=== PATIENT | male | born 1990 | race Caucasian/White ===

== ENCOUNTER 2024-07-05 14:30 | Inpatient (IN) | payer MEDICAID, SELFPAY ==
--- NOTE | 2024-07-05 14:42 | W.ED.PSYCHS ---
HPI - Psych General: Chief Complaint: Psychiatric Symptoms Stated Complaint: SI Time Seen by Provider: 07/05/24 14:34 Source: patient and EMS Mode of arrival: EMS Limitations: no limitations History of Present Illness: 33-year-old male states been having increasing depression over the last week and been having suicidal thoughts today. He states that he is scared he is going to harm himself and wants to get help. He is not on any meds denies any worse improving factors. Associated symptoms: Reports depression and suicidal ideation Related Data Home Medications ?Medication ?Instructions ?Recorded ?Confirmed No Known Home Medications 07/05/24 07/05/24 Allergies Allergy/AdvReac Type Severity Reaction Status Date / Time Iodinated Contrast Media Allergy Unknown Unknown Verified 07/05/24 15:00 Review of Systems Const: Denies: fever(s), chills, body aches or change in appetite ENMT: Denies: throat pain or dental pain Card: Denies: chest pain Resp: Denies: dyspnea GI: Denies: abdominal pain, nausea, vomiting or diarrhea Musc: Denies: neck pain or back pain Skin/Breast: Denies: rash Neuro: Denies: headache(s) Psych: Reports: depression and suicidal ideation Physical Exam Const: COMMON NORMALS: no acute distress, patient oriented x3 and healthy appearing HENMT: COMMON NORMALS: normocephalic and atraumatic HEAD & SCALP: normocephalic and atraumatic Eye: COMMON NORMALS: conjunctivae normal CONJUNCTIVA: Yes conjunctivae normal Neck/C-Spine: COMMON NORMALS: full ROM Chest: COMMONS NORMALS: normal inspection of the chest Resp: COMMON NORMALS: normal respiratory effort Cardio: COMMON NORMALS: regular rate RATE: regular rate Extremity: COMMON NORMALS: normal to inspection and full ROM Neuro: COMMON NORMALS: patient oriented x3, moves all extremities and no focal motor deficits Psych: COMMON NORMALS: mental status grossly normal, Normal thought process present and cooperative MOOD & AFFECT: Yes depressed mood THOUGHT PROCESS: Normal thought process present THOUGHT CONTENT: Yes Suicidality present Skin: COMMON NORMALS: no rashes or lesions noted and no wounds GENERAL SKIN EXAM: no rashes or lesions noted Course Vital Signs: Vital signs: Vital Signs Temperature 97.8 F 07/05/24 14:44 Pulse Rate 82 07/05/24 14:44 Respiratory Rate 16 07/05/24 14:44 Blood Pressure 120/78 07/05/24 14:44 Pulse Oximetry 97 07/05/24 14:44 Oxygen Delivery Me thod Room Air 07/05/24 14:44 MDM - Psych Medical Decision Making Patient presents here with suicidal ideations he is placed on a 96-hour hold I spoke to psychiatrist will admit at this time. He has been stable while here. Medical Records I reviewed the patient's medical records. Lab Data I reviewed the patient's lab results. 07/05/24 14:14 07/05/24 14:14 Laboratory Results WBC 7.30 10^3/uL (3.29-11.43) 07/05/24 14:14 RBC 4.55 10^6/uL (3.85-5.65) 07/05/24 14:14 Hgb 13.80 g/dL (11.27-16.99) 07/05/24 14:14 Hct 43.5 % (37-53) 07/05/24 14:14 MCV 95.6 fl (82-101) 07/05/24 14:14 MCH 30.3 pg (27-33) 07/05/24 14:14 MCHC 31.7 g/dL (30-55) 07/05/24 14:14 RDW 12.5 % (12.1-15.1) 07/05/24 14:14 Plt Count 411 10^3/cmm (157-399) H 07/05/24 14:14 MPV 9.7 fL (7.4-10.4) 07/05/24 14:14 Neut % (Auto) 58.4 % 07/05/24 14:14 Lymph % (Auto) 30.0 % 07/05/24 14:14 [place] % (Auto) 7.0 % 07/05/24 14:14 Eos % (Auto) 2.9 % 07/05/24 14:14 Baso % (Auto) 1.6 % 07/05/24 14:14 Neut # (Auto) 4.26 10^3/uL (1.8-7.7) 07/05/24 14:14 Lymph # (Auto) 2.2 10^3/uL (0.8-4.8) 07/05/24 14:14 [place] # (Auto) 0.5 10^3/uL (0.2-0.9) 07/05/24 14:14 Eos # (Auto) 0.2 10^3/uL (0.0-0.8) 07/05/24 14:14 Baso # (Auto) 0.1 10^3/uL (0.0-0.1) 07/05/24 14:14 Nucleated RBC % (auto) 0 % 07/05/24 14:14 Nucleated RBCs # 0.0 /100WBC 07/05/24 14:14 Sodium 139 mmol/L (136-145) 07/05/24 14:14 Potassium 3.7 mmol/L (3.5-5.1) 07/05/24 14:14 Chloride 103 mmol/L (98-107) 07/05/24 14:14 Carbon Dioxide 26 mmol/L (22-29) 07/05/24 14:14 Anion Gap 13.7 (5-19) 07/05/24 14:14 BUN 12 mg/dL (6-20) 07/05/24 14:14 Creatinine 0.8 mg/dL (0.7-1.2) 07/05/24 14:14 GFR Calculation 110.0 mL/min (90-130) 07/05/24 14:14 Glucose 81 mg/dL (65-115) 07/05/24 14:14 Calculated Osmolality 287 mOsm/kg (285-295) 07/05/24 14:14 Calcium 8.8 mg/dL (8.5-10.5) 07/05/24 14:14 Total Bilirubin 0.3 mg/dL (0.15-1.2) 07/05/24 14:14 AST 16 U/L (0-40) 07/05/24 14:14 ALT 20 U/L (0-41) 07/05/24 14:14 Alkaline Phosphatase 59 U/L (40-130) 07/05/24 14:14 Total Protein 6.8 g/dL (6.6-8.7) 07/05/24 14:14 Albumin 4.2 g/dL (3.5-5.2) 07/05/24 14:14 Globulin 2.6 g/dL (1.3-4.6) 07/05/24 14:14 Salicylates < 0.3 mg/dL (3-10) L 07/05/24 14:14 Acetaminophen < 5.0 ug/mL (10-30) L 07/05/24 14:14 Ethyl Alcohol 16 mg/dL (0-10) H 07/05/24 14:14 No radiology studies performed this visit Discharge Plan Discharge Patient Disposition: Admitted As Inpatient Admit Provider: Marlo Melgar Clinical Impression: Suicidal ideation Condition: Stable Coding Level of Care Code ED [employer] Technician for Wendy Merrill
[2024-07-05 14:44] VITALS: BP 120/78; PULSE 82; RESP 16; TEMP 36.6; O2SAT 97
[2024-07-05 14:50] LABS: Basophils # 0.1 10^3/uL (0.0-0.1); Basophils % 1.6 %; Eosinophils # 0.2 10^3/uL (0.0-0.8); Eosinophils % 2.9 %; Hematocrit 43.5 % (37-53); Lymphocytes # 2.2 10^3/uL (0.8-4.8); Mean Corpuscular HGB Conc 31.7 g/dL (30-55); Mean Corpuscular Hemoglobin 30.3 pg (27-33); Mean Corpuscular Volume 95.6 fl (82-101); Mean Platelet Volume 9.7 fL (7.4-10.4); Monocytes # 0.5 10^3/uL (0.2-0.9); Neutrophils # 4.26 10^3/uL (1.8-7.7); Neutrophils % 58.4 %; Nucleated Red Blood Cells % 0 %; Platelet Count 411 10^3/cmm (157-399); Red Blood Count 4.55 10^6/uL (3.85-5.65); Red Cell Distribution Width 12.5 % (12.1-15.1)
--- NOTE | 2024-07-05 14:51 | PC.NURSE ---
96 hr rights reviewed with patient @[id number] with assistance of [facility] risk officer Tera Lemus All education reviewed with patient. No verbalized questions or concerns at this time for HS. Patient copy left with patient @bedside. Fisher and soda provided. No further needs.
[2024-07-05 15:06] LABS: Alanine Aminotransferase 20 U/L (0-41); Albumin Level 4.2 g/dL (3.5-5.2); Alcohol Level 16 mg/dL (0-10); Alkaline Phosphatase 59 U/L (40-130); Anion Gap 13.7 (5-19); Aspartate Amino Transferase 16 U/L (0-40); Blood Urea Nitrogen 12 mg/dL (6-20); Calcium 8.8 mg/dL (8.5-10.5); Carbon Dioxide 26 mmol/L (22-29); Chloride 103 mmol/L (98-107); Globulin 2.6 g/dL (1.3-4.6); Glucose 81 mg/dL (65-115); Osmolality Calculated 287 mOsm/kg (285-295); Potassium 3.7 mmol/L (3.5-5.1); Sodium 139 mmol/L (136-145); Total Bilirubin 0.3 mg/dL (0.15-1.2); Total Protein 6.8 g/dL (6.6-8.7)
[2024-07-05 15:07] LABS: Acetaminophen < 5.0 ug/mL (10-30); Salicylate < 0.3 mg/dL (3-10)
[2024-07-05 15:30] VITALS: BP 126/69; PULSE 81; O2SAT 100
[2024-07-05 15:45] VITALS: BP 126/69; PULSE 81; O2SAT 100
[2024-07-05 15:47] VITALS: BP 126/76; PULSE 73; RESP 18; TEMP 36.3; O2SAT 100
[2024-07-05 16:13] LABS: Amphetamines Screen Urine Positive (Negative); Barbiturates Screen Urine Negative (Negative); Benzodiazepines Screen Urine Negative (Negative); Cocaine Screen Urine Negative (Negative); Opiate Screen Urine Negative (Negative); PCP Screen Urine Negative (Negative); THC Screen Urine Positive (Negative)
--- NOTE | 2024-07-05 17:00 | PC.NURSE ---
Admission assessment Patient came into the ED for evaluation for increase in suicidal ideation. Patient endorses increase in life stressors. Patient lives in [place], [place] without a shower. Patient said that he uses baby wipes to clean himself. Patient does have electricity. Patient says that he has a truck, but he doesn't have a way to get to it, and that lack of transportation is getting him down, as well. 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 Patient has been on psych medications in the past, but stated that none of these have worked. Patient endorses regular methamphetamine use. Patient says that he last used it 07/04/24 and that he uses it multiple times per week. Pt also drinks 6 beers per day. Patient is currently feeling suicidal with no specific plan, says that he has flashes. Patient verbally contracted for safety.
[2024-07-05 20:00] VITALS: BP 120/65; PULSE 69; RESP 18; TEMP 36.4; O2SAT 100
[2024-07-06] VITALS: RESP 16
--- NOTE | 2024-07-06 00:03 | PC.NURSE ---
pt refused nurse notified resp at 16
[2024-07-06 04:00] VITALS: BP 114/70; PULSE 60; RESP 16; O2SAT 98
[2024-07-06] MEDS: folic acid 1 mg Tablet PO (07:53)
[2024-07-06] MEDS: multivitamin therapeutic Tablet 1 TAB PO (07:54)
[2024-07-06] MEDS: thiamine 100 mg Tablet PO (07:54)
[2024-07-06 08:00] VITALS: BP 115/63; PULSE 56; RESP 18; TEMP 36.6; O2SAT 100
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
[2024-07-06 12:00] VITALS: BP 124/72; PULSE 82; RESP 18; TEMP 36.6; O2SAT 99
[2024-07-06 16:00] VITALS: BP 117/68; PULSE 71; RESP 18; TEMP 37.1; O2SAT 99
[2024-07-06] MEDS: nicotine 2 mg Gum BUCCAL (16:55)
[2024-07-06] MEDS: trazodone 50 mg Tablet PO (19:12)
[2024-07-06 20:00] VITALS: BP 110/66; PULSE 76; RESP 18; TEMP 36.3; O2SAT 98
[2024-07-07] VITALS: BP 108/62; PULSE 88; RESP 16; O2SAT 97
[2024-07-07 04:00] VITALS: BP 107/63; PULSE 68; RESP 16; O2SAT 98
[2024-07-07 08:00] VITALS: BP 107/60; PULSE 66; RESP 16; TEMP 36.5; O2SAT 97
[2024-07-07] MEDS: thiamine 100 mg Tablet PO (09:25)
[2024-07-07] MEDS: multivitamin therapeutic Tablet 1 TAB PO (09:25)
[2024-07-07] MEDS: folic acid 1 mg Tablet PO (09:25)
[2024-07-07 12:00] VITALS: BP 103/52; PULSE 119; RESP 18; TEMP 36.3; O2SAT 100
--- NOTE | 2024-07-07 13:23 | P.NPUPN_ITS ---
Subjective NPU 2 Subjective: 33-year-old male with a history of metha mphetamine induced psychotic disorder and suicidal ideation along with depression. He had continued to report depression. He did continue to isolate himself on the milieu. He had continued to endorse some paranoia with some beliefs that his family had intermittent knowledge of information with the suggestion that his thoughts were somehow being broadcasted to them. He had minimized any depressed mood today but continued to report feeling suspicious about his mother's intentions. He had denied having thoughts of hurting himself or others. Mental Status Exam 2 MSE Comments: Patient is a casually dressed healthy white male who appeared somewhat sedated initially on interview. His gait appeared within normal limits. His hygiene was poor. There was no evidence of any abnormal involuntary motor movements, tics, or tremors appreciated. His speech was diminished in volume and normal in rate and prosody. There was no evidence of any abnormal involuntary motor movements tics or tremors appreciated. His mood was described as allright. His affect was subdued He had endorsed some ideas of reference with concerns about thought broadcasting as well. He did appear paranoid. He did not appear to be responding to internal stimuli. He denied suicidal ideation. He minimized any homicidal ideation. He was alert and oriented to person place and time. His recent and remote memory appeared grossly intact. His insight is poor his judgment is poor. His impulse control is limited. Vitals/I&O/Wt Last Vital Signs Temp 97.4 F L 07/07/24 12:00 Pulse 119 H 07/07/24 12:00 Resp 18 07/07/24 12:00 BP 103/52 07/07/24 12:00 Pulse Ox 100 07/07/24 12:00 O2 Del Method Room Air 07/05/24 15:47 07/06/24 07/07/24 07/07/24 22:59 06:59 14:59 Intake Total 480 / 480 Balance 480 / 480 Data NPU 07/05/24 14:14 07/05/24 14:14 A&P Assessment and plan (1) Methamphetamine-induced psychotic disorder: (2) Depression, unspecified: (3) Suicidal ideation: Plan 33-year-old male admitted with evidence of psychosis and depression with a past history of likely methamphetamine induced psychosis positive for amphetamines, alcohol, and marijuana. #1.? Engage patient in individual milieu and group therapy. #2?? Recommend sober living treatment at the highest level of care to which the patient is willing to commit #3??? CIWA for alcohol withdrawal #4?? TO-15 minute checks? #5?? Will attempt to gather collateral information. #6 Continue Abilify 10mg daily to target psychosis. PDMP PDMP Reviewed: Not Reviewed Involuntary Hold Information 2 Hold Status: Legal Status: 96 Hour Hold Date/Time Hold Expires: 07/11/24 Attestations NPU 2 Medical Necessity Statement*: Inpatient hospitalization is medically necessary and deemed to be the clinically appropriate intervention at this time. Medications will be adjusted and initiated as indicated. The patient?s likely length of stay is 4-6 days Coding Level of Care Code Acute Code for Chg Fwd Diagnoses Methamphetamine-induced psychotic disorder F15.959 Depression, unspecified F32.A Suicidal ideation R45.851
[2024-07-07] MEDS: ARIPiprazole 10 mg Tablet PO (13:57)
[2024-07-07 16:00] VITALS: BP 103/71; PULSE 88; RESP 17; O2SAT 100
[2024-07-07 21:18] VITALS: BP 115/67; PULSE 65; RESP 17; TEMP 36.8; O2SAT 97
[2024-07-08 06:00] VITALS: BP 105/67; PULSE 96; RESP 17; TEMP 36.6; O2SAT 98
[2024-07-08] MEDS: ARIPiprazole 10 mg Tablet PO (08:38)
[2024-07-08] MEDS: folic acid 1 mg Tablet PO (08:38)
[2024-07-08] MEDS: multivitamin therapeutic Tablet 1 TAB PO (08:38)
[2024-07-08] MEDS: thiamine 100 mg Tablet PO (08:38)
[2024-07-08 13:54] VITALS: BP 99/62; PULSE 89; RESP 16; TEMP 36.6; O2SAT 97
--- NOTE | 2024-07-08 15:04 | P.NPUPN_ITS ---
Subjective NPU 2 Subjective: Patient presented today reporting that he feels like he is getting better now. He reports that the medication has been working and he was just in a bad situation having used. He very much downplayed the significance of methamphetamine in his situation but did concede that he has used was most likely responsible for him being in the hospital. He was advised about the 96- hour hold process and the likelihood of discharge by Thursday when his hold ends. He continues to be resistant to the idea of any active or intense drug treatment option to mitigate the impact that methamphetamines are having on his mental health as well as psychosocial functioning. He denied any side effects to medication. Mental Status Exam 2 MSE Comments: Patient is a casually dressed healthy white male who appeared somewhat sedated initially on interview. His gait appeared within normal limits. His hygiene was poor. There was no evidence of any abnormal involuntary motor movements, tics, or tremors appreciated. His speech was diminished in volume and normal in rate and prosody. There was no evidence of any abnormal involuntary motor movements tics or tremors appreciated. His mood was described as allright. His affect was subdued He had endorsed some ideas of reference with concerns about thought broadcasting as well. He did appear paranoid. He did not appear to be responding to internal stimuli. He denied suicidal ideation. He minimized any homicidal ideation. He was alert and oriented to person place and time. His recent and remote memory appeared grossly intact. His insight is poor his judgment is poor. His impulse control is limited. Vitals/I&O/Wt Last Vital Signs Temp 98 F 07/08/24 13:54 Pulse 89 07/08/24 13:54 Resp 16 07/08/24 13:54 BP 99/62 07/08/24 13:54 Pulse Ox 97 07/08/24 13:54 O2 Del Method Room Air 07/08/24 13:54 Data NPU 07/05/24 14:14 07/05/24 14:14 A&P Assessment and plan (1) Methamphetamine-induced psychotic disorder: (2) Depression, unspecified: (3) Suicidal ideation: Plan 33-year-old male admitted with evidence of psychosis and depression with a past history of likely methamphetamine induced psychosis positive for amphetamines, alcohol, and marijuana. 1. Encourage individual, group and milieu therapies. 2. Recommend sober living treatment at the highest level of care to which the patient is willing to commit 3. CIWA for alcohol withdrawal 4. Continue every 15 minute checks for safety. ? 5. Obtain collateral information. 6. Continue Abilify 10mg daily to target psychosis. PDMP PDMP Reviewed: Not Reviewed Involuntary Hold Information 2 Hold Status: Legal Status: 96 Hour Hold Date/Time Hold Expires: 07/11/24 Attestations NPU 2 Medical Necessity Statement*: Inpatient hospitalization is medically necessary and the clinically appropriate intervention at this time. We will initiate medications and make adjustments as indicated. The patient?s likely length of stay is 3-5 days Coding Level of Care Code Acute Code for [facility] Fwd Diagnoses Methamphetamine-induced psychotic disorder F15.959 Depression, unspecified F32.A Suicidal ideation R45.851
[2024-07-08 20:58] VITALS: BP 107/64; PULSE 71; RESP 18; TEMP 36.8; O2SAT 98
[2024-07-09 06:00] VITALS: BP 100/65; PULSE 59; RESP 18; O2SAT 97
[2024-07-09] MEDS: multivitamin therapeutic Tablet 1 TAB PO (11:09)
[2024-07-09] MEDS: folic acid 1 mg Tablet PO (11:09)
[2024-07-09] MEDS: nicotine 2 mg Gum BUCCAL (11:09)
[2024-07-09] MEDS: ARIPiprazole 10 mg Tablet PO (11:09)
[2024-07-09] MEDS: thiamine 100 mg Tablet PO (11:10)
[2024-07-09 14:00] VITALS: BP 98/62; PULSE 85; RESP 16; TEMP 36.7; O2SAT 97
--- NOTE | 2024-07-09 14:06 | P.NPUPN_ITS ---
Subjective NPU 2 Subjective: Patient presented today reporting that things are going fine. He continues to report that he does not feel he needs anything special to fix his methamphetamine addiction. He continues to demonstrate limited insight and likely is representing his ambivalence about stopping. We discussed this concern and that generally people need an active intervention to discontinue such a habitual challenge. He denied any side effects to the medication. Mental Status Exam 2 MSE Comments: Patient is a casually dressed healthy white male who appeared somewhat sedated initially on interview. His gait appeared within normal limits. His hygiene was poor. There was no evidence of any abnormal involuntary motor movements, tics, or tremors appreciated. His speech was diminished in volume and normal in rate and prosody. There was no evidence of any abnormal involuntary motor movements tics or tremors appreciated. His mood was described as allright. His affect was subdued He had endorsed some ideas of reference with concerns about thought broadcasting as well. He did appear paranoid. He did not appear to be responding to internal stimuli. He denied suicidal ideation. He minimized any homicidal ideation. He was alert and oriented to person place and time. His recent and remote memory appeared grossly intact. His insight is poor his judgment is poor. His impulse control is limited. Vitals/I&O/Wt Last Vital Signs Temp 98.2 F 07/08/24 20:58 Pulse 59 L 07/09/24 06:00 Resp 18 07/09/24 06:00 BP 100/65 07/09/24 06:00 Pulse Ox 97 07/09/24 06:00 O2 Del Method Room Air 07/08/24 13:54 Data NPU 07/05/24 14:14 07/05/24 14:14 A&P Assessment and plan (1) Methamphetamine-induced psychotic disorder: (2) Depression, unspecified: (3) Suicidal ideation: Plan 33-year-old male admitted with evidence of psychosis and depression with a past history of likely methamphetamine induced psychosis positive for amphetamines, alcohol, and marijuana. 1. Encourage individual, group and milieu therapies. 2. Recommend sober living treatment at the highest level of care to which the patient is willing to commit 3. CIWA for alcohol withdrawal 4. Continue every 15 minute checks for safety. ? 5. Obtain collateral information. 6. Continue Abilify 10mg daily to target psychosis. PDMP PDMP Reviewed: Not Reviewed Involuntary Hold Information 2 Hold Status: Legal Status: 96 Hour Hold Date/Time Hold Expires: 07/11/24 Attestations NPU 2 Medical Necessity Statement*: Inpatient hospitalization is medically necessary and the clinically appropriate intervention at this time. We will initiate medications and make adjustments as indicated. The patient?s likely length of stay is 2-4 days Coding Level of Care Code Acute Code for g Fwd Diagnoses Methamphetamine-induced psychotic disorder F15.959 Depression, unspecified F32.A Suicidal ideation R45.851
[2024-07-09] MEDS: hyDROXYzine 25 mg Capsule 50 MG PO (17:59)
[2024-07-09 21:06] VITALS: BP 105/65; PULSE 75; RESP 17; TEMP 36.7; O2SAT 96
[2024-07-10 06:00] VITALS: BP 92/58; PULSE 71; RESP 16; O2SAT 97
--- NOTE | 2024-07-10 07:10 | P.NPUPN_ITS ---
Subjective NPU 2 Subjective: Patient presented today reporting that things are seeming to be improving. We discussed some work with the social work team tomorrow to make sure appointments were in place and that he has adequate resources to address his treatment needs. He continues to be ambivalent about active sober living treatment per staff reports and direct conversation. Otherwise he denied any side effects of the medication and we discussed the likelihood of discharge tomorrow. Mental Status Exam 2 MSE Comments: This is a well-nourished well-developed white male in hospital scrubs with limited grooming and adequate eye contact. Poor dentition. No abnormal movements except for mild psychomotor retardation as he continues to be lying in bed as he is often found. Cooperative with exam in no acute distress. There was no evidence of any abnormal involuntary motor movements, tics, or tremors appreciated. His speech was mostly normal in rate volume and prosody. His mood was described as decent. His affect was slightly subdued. Thought process was organized. Thought content: Patient denied any suicidal or homicidal ideation, there were no delusions reported or noted, he denied any auditory or visual hallucinations. Attention and concentration appeared intact and memory appeared mostly reliable but none were formally tested. He is alert and oriented x 3. Insight and judgment are limited. Impulse control is limited but improving. Vitals/I&O/Wt Last Vital Signs Temp 98.0 F 07/09/24 21:06 Pulse 71 07/10/24 06:00 Resp 16 07/10/24 06:00 BP 92/58 07/10/24 06:00 Pulse Ox 97 07/10/24 06:00 O2 Del Method Room Air 07/08/24 13:54 07/09/24 07/10/24 07/10/24 22:59 06:59 14:59 Intake Total 480 / 480 Balance 480 / 480 Weight last 48 hrs Weight 65.771 kg Data NPU 07/05/24 14:14 07/05/24 14:14 A&P Assessment and plan (1) Methamphetamine-induced psychotic disorder: (2) Depression, unspecified: (3) Suicidal ideation: Plan 33-year-old male admitted with evidence of psychosis and depression with a past history of likely methamphetamine induced psychosis positive for amphetamines, alcohol, and marijuana. 1. Encourage individual, group and milieu therapies. 2. Recommend sober living treatment at the highest level of care to which the patient is willing to commit 3. CIWA for alcohol withdrawal 4. Continue every 15 minute checks for safety. ? 5. Obtain collateral information. 6. Continue Abilify 10mg daily to target psychosis. PDMP PDMP Reviewed: Not Reviewed Involuntary Hold Information 2 Hold Status: Legal Status: 96 Hour Hold Date/Time Hold Expires: 07/11/24 Attestations NPU 2 Medical Necessity Statement*: Inpatient hospitalization is medically necessary and the clinically appropriate intervention at this time. We will initiate medications and make adjustments as indicated. The patient?s likely length of stay is 1-3 days Coding Level of Care Code Acute Code for [facility] Fwd Diagnoses Methamphetamine-induced psychotic disorder F15.959 Depression, unspecified F32.A Suicidal ideation R45.857
[2024-07-10] MEDS: thiamine 100 mg Tablet PO (09:22)
[2024-07-10] MEDS: ARIPiprazole 10 mg Tablet PO (09:23)
[2024-07-10] MEDS: multivitamin therapeutic Tablet 1 TAB PO (09:23)
[2024-07-10] MEDS: folic acid 1 mg Tablet PO (09:23)
[2024-07-10] MEDS: nicotine 2 mg Gum BUCCAL ×2 (11:54→17:27)
[2024-07-10 14:00] VITALS: BP 107/66; PULSE 73; RESP 16; O2SAT 98
[2024-07-10] MEDS: hyDROXYzine 25 mg Capsule 50 MG PO (17:27)
[2024-07-10] MEDS: trazodone 50 mg Tablet PO (20:05)
[2024-07-10 20:28] VITALS: BP 101/63; PULSE 80; RESP 18; TEMP 36.6; O2SAT 99
[2024-07-11 06:00] VITALS: BP 91/57; PULSE 70; RESP 16; O2SAT 96
[2024-07-11] MEDS: folic acid 1 mg Tablet PO (09:40)
[2024-07-11] MEDS: ARIPiprazole 10 mg Tablet PO (09:40)
[2024-07-11] MEDS: thiamine 100 mg Tablet PO (09:41)
[2024-07-11] MEDS: multivitamin therapeutic Tablet 1 TAB PO (09:41)
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
[2024-07-11 14:00] VITALS: BP 92/59; PULSE 72; RESP 16; TEMP 36.6; O2SAT 98
[2024-07-11 15:28] VITALS: BP 116/70; PULSE 68; RESP 16; TEMP 36.4; O2SAT 99
== END 2024-07-11 18:18 | disposition home or self-care (01) | DRG 897 ==
LOC: ER 15:00 → NP 15:06
PROVIDERS: Physician Assistant; Admitting Provider Psychiatry & Neurology Psychiatry; Emergency Provider Emergency Medicine; Visit Provider Psychiatry & Neurology Psychiatry
DX: F15.959 Other stimulant use, unspecified with stimulant-induced psychotic disorder, unspecified (principal); R45.851 Suicidal ideations; F32.A Depression, unspecified; F10.129 Alcohol abuse with intoxication, unspecified; Z91.51 Personal history of suicidal behavior; Z81.1 Family history of alcohol abuse and dependence; Z81.8 Family history of other mental and behavioral disorders
CPT/HCPCS: 80053; 80306; 80307; 85025; 97150; 97165; 99285; J9999

== ENCOUNTER → 2025-02-03 09:30 | Outpatient (BNVA) | payer MEDICAID, OTHER, SELFPAY | PROVIDERS: Visit Provider Nurse Practitioner Family | DX: Z91.89 Other specified personal risk factors, not elsewhere classified (principal) | CPT/HCPCS: 86592; 86695; 86696; 87491; 87591 ==